=== PATIENT | female | born 1970 | race Two or more races ===

== ENCOUNTER → 2018-06-30 | Outpatient (CLI) | payer OTHER ==
[~2018-06-30] MED LIST: ASPI81CH; Imitrex100 MG PO; TAMO10
== END | disposition home or self-care (01) ==
LOC: LAB SRC 16:55 → LAB 16:55 → LAB SHORT 16:55
DX: N39.0 Urinary tract infection, site not specified (principal)
CPT/HCPCS: 87086

== ENCOUNTER 2019-06-16 06:53 | Day surgery (SDC) | payer OTHER ==
[~2019-06-16] VITALS: Ht 167.6 cm; Wt 75.1 kg
[~2019-06-16 06:53] MED LIST changes: +ASCO500 PO; +VITAMIN D32000 UNI1 PO
--- NOTE | 2019-06-16 07:41 | NUR ---
06/16/19 0741 Sunita Marti PRE-OP HEALTH HISTORY TRANSLATED BY ID# [id number].
== END 2019-06-16 09:08 | disposition home or self-care (01) ==
LOC: ORSCSDS 06:53
PROVIDERS: Internal Medicine Gastroenterology
PROC: 0DB68ZX Excision of Stomach, Via Natural or Artificial Opening Endoscopic, Diagnostic (ICD-10-PCS; principal; 2019-06-16 08:00)
PROC: 0DJD8ZZ Inspection of Lower Intestinal Tract, Via Natural or Artificial Opening Endoscopic (ICD-10-PCS; principal; 2019-06-16 08:00)
PROC: 0DB98ZZ Excision of Duodenum, Via Natural or Artificial Opening Endoscopic (ICD-10-PCS; principal; 2019-06-16 08:00)
DX: R10.13 Epigastric pain (principal); K59.00 Constipation, unspecified; R14.0 Abdominal distension (gaseous); K29.70 Gastritis, unspecified, without bleeding; K31.89 Other diseases of stomach and duodenum; Z80.0 Family history of malignant neoplasm of digestive organs; Z79.899 Other long term (current) drug therapy
CPT/HCPCS: 88305; 88342; J0461; J2250; J2405; J2704; J7120

== ENCOUNTER → 2020-11-15 | Outpatient (CLI) | payer OTHER | END | disposition home or self-care (01) | LOC: LAB SHORT 12:57 → LAB 12:57 | DX: N39.0 Urinary tract infection, site not specified (principal) | CPT/HCPCS: 87077; 87086; 87186 ==

== ENCOUNTER → 2024-11-07 | Outpatient (CLI) | payer OTHER | LOC: LAB 15:45 → LAB SHORT 15:45 | DX: N39.0 Urinary tract infection, site not specified (principal); R31.9 Hematuria, unspecified | CPT/HCPCS: 87077; 87086; 87186 ==